=== PATIENT | male | born 1945 | race Caucasian/White ===

== ENCOUNTER → 2017-01-31 | Outpatient (CLI) | payer MEDICARE, OTHER ==
[~2017-01-31] MED LIST: No meds per pt.
[2017-01-31 15:15] LABS: ASPARTATE AMINO TRANSFERASE 51 U/L (15-37); BLOOD UREA NITROGEN 10 mg/dL (7-18)
[2017-01-31 15:42] LABS: HEMATOCRIT 45.9 % (39.2-51.8); HEMOGLOBIN 15.4 g/dL (13.7-18.0); WHITE BLOOD COUNT 6.3 x10^3/uL (3.4-10)
== END | disposition home or self-care (01) ==
LOC: STAR 13:14
PROVIDERS: ATTEND Orthopaedic Surgery
DX: Z01.818 Encounter for other preprocedural examination (principal); R94.31 Abnormal electrocardiogram [ECG] [EKG]; M16.11 Unilateral primary osteoarthritis, right hip; R79.1 Abnormal coagulation profile; R79.89 Other specified abnormal findings of blood chemistry
CPT/HCPCS: 36415; 80053; 83036; 85025; 85610; 85730; 87081; 87147; 93005

== ENCOUNTER 2017-02-07 09:23 | Inpatient (IN) | payer MEDICARE, OTHER ==
[~2017-02-07] VITALS: Ht 177.8 cm; Wt 86.0 kg
[~2017-02-07 09:23] MED LIST changes: +EPINEPHRINE 1 MG/ML, 1ML ONE; +KETOROLAC 60 MG/2 ML ONE; +ROPIvacaine/PF 0.5%, 30 ML ONE; +SODIUM CHLORIDE 0.9% 50 ML ONE; +TRANEXAMIC ACID 100 MG/ML, 10ML ONE; +VANCOMYCIN 1,000 MG ONE
[2017-02-07] MEDS ORDERED: OxyconTIN ER 10 MG TAB.ER ONE (09:57)
[2017-02-07] MEDS ORDERED: LACTATED RINGERS 1,000 ML IV SCH (10:00)
[2017-02-07] MEDS ORDERED: OxyconTIN ER 10 MG TAB.ER PO ONE (10:00)
[2017-02-07] MEDS ORDERED: ACETAMINOPHEN 500 MG TABLET PO ONE (10:00)
[2017-02-07] MEDS ORDERED: LIDOCAINE 1%, 2ML SQ PRN (10:00)
[2017-02-07] MEDS ORDERED: GABAPENTIN 300 MG CAPSULE PO ONE (10:00)
[2017-02-07] MEDS ORDERED: GABAPENTIN 300 MG CAPSULE ONE (10:02)
[2017-02-07] MEDS ORDERED: ACETAMINOPHEN 500 MG TABLET ONE (10:03)
[2017-02-07] MEDS ORDERED: LIDOCAINE 1%, 2ML ONE (10:03)
[2017-02-07 10:10] VITALS: BP 175/82
[2017-02-07] MEDS ORDERED: FENTANYL PF 100 MCG/2ML ONE ×2 (10:20)
[2017-02-07] MEDS ORDERED: MIDAZOLAM 1 MG/ML, 2ML ONE (10:20)
[2017-02-07] MEDS ORDERED: KETAMINE 10 MG/ML, 20ML ONE (10:20)
[2017-02-07] MEDS ORDERED: ONDANSETRON 2MG/ML, 2ML IV PRN (11:30)
[2017-02-07] MEDS ORDERED: DIAZEPAM 5 MG TABLET PO PRN (11:30)
[2017-02-07] MEDS ORDERED: PROMETHAZINE 12.5 MG SUPP PR PRN (11:30)
[2017-02-07] MEDS ORDERED: PROMETHAZINE 25 MG/ML, 1ML IM PRN (11:30)
[2017-02-07] MEDS ORDERED: SCOPOLAMINE PATCH, 1.5MG PATCH.TD72 TD PRN (11:30)
[2017-02-07] MEDS ORDERED: ACETAMINOPHEN 650 MG/20.3 ML UDC PO PRN (11:30)
[2017-02-07] MEDS ORDERED: ZOLPIDEM 5MG TABLET PO PRN (11:30)
[2017-02-07] MEDS ORDERED: ONDANSETRON 4 MG TABLET PO PRN (11:30)
[2017-02-07] MEDS ORDERED: MAGNESIUM HYDROXIDE 8%, 30ML UDC PO PRN (11:30)
[2017-02-07] MEDS ORDERED: SENNA/DOCUSATE TABLET PO PRN (11:30)
[2017-02-07] MEDS ORDERED: DIAZEPAM 5 MG/ML, 2ML IVPush PRN (11:30)
[2017-02-07] MEDS ORDERED: BISACODYL 10 MG SUPP PR PRN (11:30)
[2017-02-07] MEDS ORDERED: ALUMINUM/MAG/SIMETHICONE 30 ML UDC PO PRN (11:30)
[2017-02-07] MEDS ORDERED: DIPHENHYDRAMINE 25 MG CAPSULE PO PRN (11:30)
[2017-02-07] MEDS ORDERED: CEFAZOLIN 1,000 MG ONE (11:39)
[2017-02-07] MEDS ORDERED: ONDANSETRON 2MG/ML, 2ML ONE (11:39)
[2017-02-07] MEDS ORDERED: DEXAMETHASONE 4 MG/ML, 5ML ONE (11:39)
[2017-02-07] MEDS ORDERED: ROCURONIUM 10 MG/ML ONE ×2 (11:39)
[2017-02-07] MEDS ORDERED: SUCCINYLCHOLINE 20 MG/ML, 10ML ONE (11:39)
[2017-02-07] MEDS ORDERED: GLYCOPYRROLATE 0.2MG/1ML ONE (11:39)
[2017-02-07] MEDS ORDERED: NEOSTIGMINE 1 MG/ML, 10ML ONE (11:39)
[2017-02-07] MEDS ORDERED: PROPOFOL 10 MG/ML, 20ML ONE (11:39)
[2017-02-07] MEDS ORDERED: HYDROmorphone 2 MG/ML, 1ML ONE (12:42)
[2017-02-07] MEDS ORDERED: FENTANYL PF 100 MCG/2ML IV PRN (13:30)
[2017-02-07] MEDS ORDERED: OXYcodone 5 MG/5 ML ORAL.SOL UDC PO PRN (13:30)
[2017-02-07] MEDS ORDERED: MIDAZOLAM 1 MG/ML, 2ML IV PRN (13:30)
[2017-02-07] MEDS ORDERED: PROMETHAZINE 25 MG/ML, 1ML IV PRN (13:30)
[2017-02-07] MEDS ORDERED: HYDROmorphone 1 MG/ML, 1ML IV PRN (13:30)
[2017-02-07 14:45] VITALS: BP 145/69
[2017-02-07] MEDS: D5%-0.45% NACL 1,000 ML IV SCH (17:00)
[2017-02-07 19:24] VITALS: BP 131/85
[2017-02-07] MEDS: ASPIRIN 81 MG TABLET CHEW PO SCH (20:13)
[2017-02-07] MEDS: CEFAZOLIN PMX 1GM/50ML 50 ML IV SCH (20:13)
[2017-02-07] MEDS: DOCUSATE 100 MG CAPSULE PO SCH (20:23)
[2017-02-07] MEDS: SODIUM CHLORIDE FLUSH 10ML SYR IVF SCH (20:23)
[2017-02-08 00:36] VITALS: BP_SYST 138; BP_SYST 142; BP_DIAS 100; BP_DIAS 89
[2017-02-08] MEDS ORDERED: OXYC5TAB2 PO (03:43)
[2017-02-08] MEDS ORDERED: TRAM50TA2 PO (03:46)
[2017-02-08] MEDS ORDERED: MELO7.5T31 PO (03:48)
[2017-02-08] MEDS ORDERED: ONDA4TAB7 PO (03:49)
[2017-02-08] MEDS ORDERED: ASPI-515 PO (03:51)
[2017-02-08] MEDS: D5%-0.45% NACL 1,000 ML IV SCH ×2 (04:00→12:00)
[2017-02-08] MEDS: CEFAZOLIN PMX 1GM/50ML 50 ML IV SCH (04:02)
[2017-02-08 04:35] VITALS: BP 157/78
[2017-02-08 04:43] LABS: HEMATOCRIT 40.8 % (39.2-51.8); HEMOGLOBIN 13.8 g/dL (13.7-18.0)
[2017-02-08] MEDS ORDERED: DEXAMETHASONE 4 MG/ML, 1ML IVPush SCH (06:00)
[2017-02-08 06:55] VITALS: BP 144/78
[2017-02-08] MEDS: DOCUSATE 100 MG CAPSULE PO SCH (07:47)
[2017-02-08] MEDS: SODIUM CHLORIDE FLUSH 10ML SYR IVF SCH (07:47)
[2017-02-08] MEDS: ASPIRIN 81 MG TABLET CHEW PO SCH (07:47)
[2017-02-08] MEDS ORDERED: ACETAMINOPHEN 325 MG TABLET ONE (07:49)
[2017-02-08] MEDS ORDERED: MULTIVITAMINS/MINERALS TABLET PO SCH (09:00)
[2017-02-08] MEDS ORDERED: PNEUMOCOCCAL 23 VACCINE IM-VACC ONE (11:30)
[2017-02-08 12:12] VITALS: BP 139/62
== END 2017-02-08 12:00 | disposition home or self-care (01) | DRG 469 ==
LOC: ORIP 09:23 → 4NOR 14:38
PROVIDERS: ADMIT Orthopaedic Surgery; ATTEND Orthopaedic Surgery
PROC: 0SR901A Replacement of Right Hip Joint with Metal Synthetic Substitute, Uncemented, Open Approach (ICD-10-PCS; principal; 2017-02-07 11:30)
DX: M16.11 Unilateral primary osteoarthritis, right hip (principal); E43 Unspecified severe protein-calorie malnutrition; F17.200 Nicotine dependence, unspecified, uncomplicated; Z23 Encounter for immunization; Z68.27 Body mass index [BMI] 27.0-27.9, adult; K70.9 Alcoholic liver disease, unspecified
CPT/HCPCS: 36415; 72170; 76001; 81001; 85014; 85018; 86850; 86900; 87086; 90732; C1713; J0171; J0690; J1100; J1170; J1885; J2250; J2405; J2704; J2710; J2795; J3010; J3370; J3490; C1776; J0330